=== PATIENT | female | born 1995 | race Hispanic/Latino ===

== ENCOUNTER 2021-05-27 15:01 | Emergency (ER) | payer SELFPAY ==
--- NOTE | 2021-05-27 16:58 | ER ---
Nurse's Notes [facility] Name: Kiki Chavez Age: 26 yrs Sex: Female : 1995 Arrival Date: 05/27/2021 Time: 15:01 Bed 26 Private MD: Diagnosis: Presentation: 05/27 15:01 Chief complaint: EMS states: was trying to get in her car and slid down hitting the sv Right lower side of her body against the car. Care prior to arrival: None. Mechanism of Injury: Fall from standing position. Trauma event details: Injury occurred in the [facility], Injury occurred: at home. Injury occurred: May 27, 2021. 15:01 Acuity: PRISCA 3 sv 15:01 Method Of Arrival: EMS: [facility] sv 15:02 Coronavirus screen: Client denies travel out of the [place] in the last 14 days. At this sv time, the client does not indicate any symptoms associated with coronavirus-19. Ebola Screen: No symptoms or risks identified at this time. Risk Assessment: Do you want to hurt yourself or someone else? Patient reports no desire to harm self or others. Onset of symptoms was May 27, 2021. 15:03 Initial Sepsis Screen: Does the patient meet any 2 criteria? RR > 20 per min. HR > 90 sv bpm. Yes Does the patient have a suspected source of infection? No. Patient's initial sepsis screen is negative. Triage Assessment: 15:04 General: Appears in no apparent distress. uncomfortable, Behavior is calm, cooperative, sv appropriate for age. Pain: Complains of pain in right side of body. Neuro: Level of Consciousness is awake, alert, obeys commands, Oriented to person, place, time, situation, Gait is steady. Respiratory: Respiratory effort is even, unlabored. Historical: - Allergies: 15:03 No Known Allergies; sv - PMHx: 15:03 None; sv - PSHx: 15:03 section; sv - Immunization history:: Client reports having NOT received the Covid vaccine. - Social history:: Smoking status: Patient reports the use of cigarette tobacco products, denies chronic smoking, but will smoke occasionally. Vital Signs: 15:03 BP 108 / 92; Pulse 95; Resp 22; Temp 97; Pulse Ox 96% ; Weight 111.13 kg; Height 5 ft. sv 1 in. (154.94 cm); Pain 10/10; 15:03 Body Mass Index 46.29 (111.13 kg, 154.94 cm) sv ED Course: 15:01 Patient arrived in ED. sv 15:02 Triage completed. sv 15:03 Arm band placed on. sv Administered Medications: No medications were administered Outcome: 16:58 Patient left the ED. sv Signatures: Anastasia Shin RN RN sv Corrections: (The following items were deleted from the chart) 15:05 15:03 Pulse 95bpm; Resp 22bpm; Pulse Ox 96%; Temp 97F; 111.13 kg; Height 5 ft. 1 in.; sv BMI: 46.2; Pain 10/10; sv
[2021-05-27 17:10] VITALS: BP 108/92; TEMP 97; O2SAT 96
== END 2021-05-27 16:58 | disposition left against medical advice (07) ==
LOC: ER 15:01
DX: Z53.21 Procedure and treatment not carried out due to patient leaving prior to being seen by health care provider (principal)
CPT/HCPCS: 99282